=== PATIENT | female | born 1995 | race Caucasian/White ===

== ENCOUNTER 2016-05-07 09:42 | Outpatient (CLI) | payer MEDICAID ==
--- NOTE | 2016-05-07 10:01 | L&D Flow Sheet ---
LD Flowsheet Datetime Report Generated by CPN: 05/07/2016 10:00 Datetime: 05/07/2016 09:56 NBP Sys/Diya/Mean (mmHg): 110 (QS system process) : 75 (QS system process) : 86 (QS system process) Pulse: 77 (QS system process)
--- NOTE | 2016-05-07 10:24 | Non Stress Test Report ---
Non Stress Test Datetime Report Generated by CPN: 05/07/2016 10:24 DEMOGRAPHIC EGA NST: 40.2 INDICATION Indication for Study: Ordered by Provider Indication for Study (NST) Other: POST DATES VITAL SIGNS Temperature - NST: 98.2 Pulse - NST: 77 RESP - NST: 16 NBPSYS NST: 110 NBPDIA NST: 75 MONITORING Monitor Explained: Monitor Explained; Test Explained; Patient Verbalized Understanding Time on Monitor: 05/07/2016 09:56 Time off Monitor: 05/07/2016 10:14 NST Duration: 18 NST INTERVENTIONS NST Interventions: PO Hydration; Reposition Patient Physician Notified NST: Meryl CRESPO CNM Physician Notified NST: meryl crespo cnm (Annotations: Data stored by CPN on behalf of user) BABY A: [id number] BABY A Movement : Present Movement : Present Contraction Frequency : irreg FHR Baseline : 130 Accelerations : 15X15 Variability : Moderate 6-25bpm NST Review: Meets Criteria for Reactive NST NST Review and Verified By : Jennifer Camp RNC NST Results: Reactive NST REPORT Report Trigger: Send Report
--- NOTE | 2016-05-07 10:46 | L&D Flow Sheet ---
LD Flowsheet Datetime Report Generated by CPN: 05/07/2016 10:45 Datetime: 05/07/2016 09:56 NBP Sys/Diya/Mean (mmHg): 110 (QS system process) : 75 (QS system process) : 86 (QS system process) Pulse: 77 (QS system process)
--- NOTE | 2016-05-07 10:46 | L&D General Admission ---
General Admit Datetime Report Generated by CPN: 05/07/2016 10:45 INFORMATION Patient Age: 20 (05/01/2016 14:25:QS system process) EDC: 05/05/2016 00:00 (05/07/2016 09:20:Meryl Vergara, RN) Para: 1 (05/07/2016 09:57:Meryl Vergara RN) Baby, Number in Womb: 1 (05/07/2016 09:57:Meryl Vergara, RN) CARE Primary Operations Controller: [facility] (Annotations: Data stored by Leona on behalf of user) (05/07/2016 09:20:Meryl Vergara RN) ALLERGIES Medication Allergies: No Known Drug Allergies (05/07/2016); nickel (05/07/2016) (05/07/2016 10:09:QS system process) DEMOGRAPHICS Address: [address] [place] [id number] (05/01/2016 14:25:QS system process) Zipcode: [address] (05/01/2016 14:25:QS system process) Home (05/01/2016 14:25:QS system process) Work (05/01/2016 14:25:QS system process) N: [phone] (05/01/2016 14:25:QS system process) Next of Kin Name: ANKITA WATSON (05/01/2016 14:25:QS system process) Next of Kin (05/01/2016 14:25:QS system process) Next of Kin Relationship: SPO (05/01/2016 14:25:QS system process) Date of : 1995 (05/01/2016 14:25:QS system process) Marital Status: (05/01/2016 14:25:QS system process) Sex: Female (05/01/2016 14:25:QS system process) Race: (05/01/2016 14:25:QS system process) Ethnicity: Non- or (05/01/2016 14:25:QS system process) Catholic: None (05/01/2016 14:25:QS system process)
--- NOTE | 2016-05-07 10:46 | Antepartum Discharge Summary ---
Antepartum DC Datetime Report Generated by CPN: 05/07/2016 10:45 Diet: Regular (05/07/2016 09:57:Meryl Vergara RN) Activity: Normal Activity (05/07/2016 09:57:Meryl Vergara RN) Instructions Understood: Patient Verbalized Understanding; Support Person Verbalized Understanding (05/07/2016 09:57:Meryl Vergara RN) Referrals: None (05/07/2016 09:57:Meryl Vergara RN) Educational Materials- Other: KICK COUNTS _ LABOR SIGNS CARE NOTES GIVEN TO PT- QUESTIONS ANSWERED. (05/07/2016 09:57:Meryl Vergara RN) Discharged AMA: No (05/07/2016 09:57:Meryl Vergara RN) Discharge Date/Time: 05/07/2016 10:19 (05/07/2016 09:57:Meryl Vergara RN) Discharged To: Home (05/07/2016 09:57:Meryl Vergara RN) Discharge Provider Name: Meryl POLO CNM (05/07/2016 09:57:Meryl Vergara RN) Accompanied By: JIMY (05/07/2016 09:57:Meryl Vergara RN) Discharge Method: Ambulatory (05/07/2016 09:57:Meryl Vergara RN) Condition: Stable (05/07/2016 09:57:Meryl Vergara RN) Follow Up With: [facility] (05/07/2016 09:57:Meryl Vergara RN) Follow Up On: As Scheduled (05/07/2016 09:57:Meryl Vergara RN) Follow Up Phone Number: [facility] - (05/07/2016 09:57:Meryl Vergara RN)
--- NOTE | 2016-05-07 10:46 | L&D Discharge Summary ---
OB Discharge Summary Datetime Report Generated by CPN: 05/07/2016 10:45 DISCHARGE DIAGNOSIS Diagnosis/Symptoms: Post Dates Diagnoses/Symptoms Other: REACTIVE NST- POST DATES; NOT IN LABOR Number of Babies in Womb: 1 Parity: 1 DIET/ACTIVITY/RESTRICTIONS Diet: Regular Activity: Normal Activity TEACHING/INSTRUCTIONS/REFERRALS Instructions Understood: Patient Verbalized Understanding; Support Person Verbalized Understanding Referrals: None Educational Materials- Other: KICK COUNTS _ LABOR SIGNS CARE NOTES GIVEN TO PT- QUESTIONS ANSWERED. DISCHARGE INFORMATION Discharged AMA: No Discharge Date/Time: 05/07/2016 10:19 Discharged To: Home Discharge Provider Name: C POLO, CNM Accompanied By: FOB Discharge Method: Ambulatory Condition: Stable FOLLOW UP INFORMATION Follow Up With: [facility] Follow Up On: As Scheduled Follow Up Phone Number: [facility] -
== END 2016-05-07 10:19 | disposition home or self-care (01) ==
LOC: LC 09:42
PROVIDERS: ATTEND Obstetrics & Gynecology
PROC: 4A1HXCZ Monitoring of Products of Conception, Cardiac Rate, External Approach (ICD-10-PCS; principal; 2016-05-07)
DX: O48.0 Post-term pregnancy (principal); Z3A.40 40 weeks gestation of pregnancy
CPT/HCPCS: 59025

== ENCOUNTER 2016-05-09 00:20 | Inpatient (IN) | payer MEDICAID ==
[2016-05-09] MEDS ORDERED: LIDOCAINE 1% INJ-PF (10 MG/ML) 30 ML SDV ONE (00:39)
[2016-05-09] MEDS ORDERED: OXYTOCIN/NORMAL SALINE 20 UNIT/1,000 ML RTUINJ ONE (00:39)
[2016-05-09] MEDS ORDERED: MISOPROSTOL 0.2 MG TABLET ONE (00:39)
[2016-05-09] MEDS ORDERED: PENICILLIN G-K 5 MILLION UNIT VIAL ONE ×2 (00:39→03:52)
[2016-05-09] MEDS ORDERED: RINGERS SOLUTION,LACTATED 1,000 ML IV ONE (00:44)
[2016-05-09] MEDS ORDERED: RINGERS SOLUTION,LACTATED 1,000 ML IV PRN (00:44)
[2016-05-09] MEDS ORDERED: FENTANYL/BUPIVACAINE/NS/PF 200 MCG/100 ML RTUINJ EPI ONE (00:49)
[2016-05-09] MEDS ORDERED: BUPIVACAINE HCL 0.25 % INJ/PF (2.5 MG/1 ML) 30 ML VIAL ONE (00:49)
[2016-05-09] MEDS ORDERED: EPHEDRINE SULFATE INJ 50 MG/1 ML AMPULE ONE (00:49)
[2016-05-09] MEDS ORDERED: PENICILLIN G POTASSIUM 5,000,000 UNIT in DEXTROSE 5%-WATER 100 ML IV ONE (01:00)
[2016-05-09] MEDS ORDERED: BENZOIN/ALOE VERA/STORAX/TOLU TINCTURE 60 ML TP PRN (01:05)
[2016-05-09] MEDS ORDERED: DIPHENHYDRAMINE HCL 50 MG/ML VIAL IV PRN (01:05)
[2016-05-09] MEDS ORDERED: EPHEDRINE SULFATE INJ 50 MG/1 ML AMPULE IV PRN (01:05)
[2016-05-09] MEDS ORDERED: EPHEDRINE SULFATE INJ 50 MG/1 ML AMPULE IV ONE (01:05)
[2016-05-09] MEDS ORDERED: BUPIVACAINE HCL 0.25 % INJ/PF (2.5 MG/1 ML) 30 ML VIAL INFIL ONE (01:05)
[2016-05-09 01:10] LABS: ABSOLUTE EOSINOPHILS # (AUTO) 0.1 10^3/uL (0.0-0.6); ABSOLUTE LYMPHOCYTES (AUTO) 3.4 10^3/uL (0.5-4.7); ABSOLUTE MONOCYTES (AUTO) 0.6 10^3/uL (0.1-1.4); ABSOLUTE NEUT (AUTO) 5.4 10^3/uL (1.7-8.2); BASOPHILS % (AUTO) 0.3 % (0-2); EOSINOPHILS % (AUTO) 0.9 % (0-6); HEMATOCRIT 35.7 % (36.0-47.0); HEMOGLOBIN 12.2 g/dL (12.0-15.5); HGB HCT DIFFERENCE 0.9; LYMPHOCYTES % (AUTO) 35.9 % (13-45); MEAN CORPUSCULAR HEMOGLOBIN 29.6 pg (27.0-33.4); MEAN CORPUSCULAR HGB CONC 34.3 g/dL (32.0-36.0); MEAN CORPUSCULAR VOLUME 86 fl (80-97); RED BLOOD COUNT 4.14 10^6/uL (3.72-5.28); RED CELL DISTRIBUTION WIDTH 15.5 % (11.5-14.0); SEGMENTED NEUTROPHILS % (AUTO) 56.9 % (42-78); WHITE BLOOD COUNT 9.4 10^3/uL (4.0-10.5)
[2016-05-09 01:11] LABS: APPEARANCE,URINE SLIGHTLY-CLOUDY; BILIRUBIN,URINE NEGATIVE (NEGATIVE); GLUCOSE, URINE NEGATIVE (NEGATIVE); KETONES,URINE TRACE mg/dL (NEGATIVE); LEUKOCYTE ESTERASE,URINE MODERATE (NEGATIVE); NITRITE,URINE NEGATIVE (NEGATIVE); PROTEIN,URINE NEGATIVE (NEGATIVE); URINE SPECIFIC GRAVITY 1.015; UROBILINOGEN,URINE NEGATIVE mg/dL (<2.0)
[2016-05-09 01:51] LABS: URINE BARBITURATES SCREEN NEGATIVE; URINE METHADONE SCREEN NEGATIVE; URINE OPIATES LOW NEGATIVE
[2016-05-09 01:55] LABS: URINE PHENCYCLIDINE SCREEN NEGATIVE
[2016-05-09] MEDS: FENTANYL/BUPIVACAINE/NS/PF 100 ML EPI PRN ×2 (04:02→04:24)
[2016-05-09] MEDS ORDERED: PENICILLIN G POTASSIUM 2,500,000 UNIT in DEXTROSE 5%-WATER 50 ML IV SCH (05:00)
--- NOTE | 2016-05-09 05:16 | L&D Progress Notes ---
PROGRESS NOTES Datetime Report Generated by CPN: 05/09/2016 05:16 PROGRESS NOTE Procedures: Artificial ROM Plan: Continue Present Management Comment: Vertex is ROP. Repositioned. VAGINAL EXAM Dilatation: 9 Effacement: 100 Station: 0 MEMBRANES Membranes: Ruptured Amniotic Fluid Color: Clear FETUS A Monitoring: External US FHR Category: Category I SIGNATURE SIGNATURE: [id number] SIGNATURE: [id number] Signature: with User ID: [email or web address]
[2016-05-09] MEDS ORDERED: OXYTOCIN/NORMAL SALINE 1,000 ML IV PRN ×2 (05:52→06:12)
[2016-05-09] MEDS ORDERED: DIPH/PERTUSS(ACELL)/TETANUS VAC/PF 0.5 ML SYR (>=10YO) IM PRN (06:12)
[2016-05-09] MEDS ORDERED: BENZOCAINE/MENTHOL AEROSOL SPRAY 56 ML TOP PRN (06:12)
[2016-05-09] MEDS ORDERED: DIBUCAINE 1% OINTMENT 28 GM TP PRN (06:12)
[2016-05-09] MEDS ORDERED: ZOLPIDEM TARTRATE 5 MG TABLET PO PRN (06:12)
[2016-05-09] MEDS ORDERED: ACETAMINOPHEN WITH CODEINE #3 TABLET PO PRN ×2 (06:12)
[2016-05-09] MEDS ORDERED: MEASLES,MUMPS&RUBELLA VACC/PF 0.5 ML VIAL SUBCUT PRN (06:12)
--- NOTE | 2016-05-09 07:58 | Delivery Summary ---
Del Sum A-C Datetime Report Generated by CPN: 05/09/2016 07:58 ADMISSION DATA Chief Complaint: Uterine Contractions Admission Impression: Term, Intrauterine ; Active Labor Admit Provider Comments: admit, pt comfortable with epidural, gbs prophylaxis DELIVERY PERSONNEL Delivery Doctor:: Jaclyn Quinn MD Labor and Delivery Nurse:: Jen Marie RNtimekeeper supervisor Nurse:: Quyen Paulino RN Physician Obstetrician/MACHINIST AUTOMOTIVE: Milagros Kuhn, ST MATERNAL INFORMATION Delivery Anesthesia: Epidural Medications After Delivery: Pitocin Drip 20 Units/1000ml NSS Estimated Blood Loss (ml): 150 Maternal Complications: None Provider Comments: Pt progressed to complete and pushig. Hea delivered MARI. Shoulders and body delivered easily. COURT REPORTER/OP bulb suctioned. Cord clamped and cut. Placenta spont and intact. Male infant with apgars 9 and 9. Intact perineum. Mom and baby doing well. LABOR SUMMARY EDC: 05/05/2016 00:00 No. Babies in Womb: 1 Attempted: No Labor Anesthesia: Epidural LABOR INFORMATION Reason for Induction: Not Applicable Onset of Labor: 05/09/2016 00:34 Complete Dilatation: 05/09/2016 05:41 Oxytocin: N/A Group B Beta Strep: Positive Antibiotics # of Doses: 0415 Antibiotics Time of Last Dose: 2 Name of Antibiotic Given: PCN Steroids Given: None Reason Steroids Not Administered: Not Applicable MEMBRANES Membranes Rupture Method: Artificial Rupture of Membranes: 05/09/2016 05:02 Length of Rupture (hr): 0.97 Amniotic Fluid Color: Clear Amniotic Fluid Amount: Moderate Amniotic Fluid Odor: Normal STAGES OF LABOR Stage 1 hr: 5 Stage 1 min: 7 Stage 2 hr: 0 Stage 2 min: 19 Stage 3 hr: 0 Stage 3 min: 3 Total Time in Labor hr: 5 Total Time in Labor min: 29 VAGINAL DELIVERY Episiotomy: None Laceration Extension: N/A Laceration Type: None Laceration Repair: Not Applicable Sponge Count Correct: N/A Sharps Count Correct: N/A CSECTION DELIVERY Primary Indication: N/A Secondary Indication: N/A CSection Incidence: N/A Labor: N/A Elective: N/A CSection Incision: N/A BABY A INFORMATION Infant Delivery Date/Time: 05/09/2016 06:00 Method of Delivery: Vaginal Born in Route : No : N/A Forceps: N/A Vacuum Extraction: N/A Shoulder Dystocia : No PRESENTATION/POSITION BABY A Presentation: Cephalic Cephalic Presentation: Vertex Vertex Position: Right Occipital Anterior Breech Presentation: N/A PLACENTA INFORMATION BABY A Placenta Delivery Time : 05/09/2016 06:03 Placenta Method of Delivery: Spontaneous Placenta Status: Delivered SCORES BABY A Heart Rate 1 min: >100 bpm Resp Effort 1 min: Good Cry Reflex Irritability 1 min: Cough or Sneeze or Pulls Away Muscle Tone 1 min: Active Motion Color 1 min: Body [place], Extremities Blue Resuscitation Effort 1 min: Tactile Stimulation SCORE 1 MIN: 9 Heart Rate 5 min: >100 bpm Resp Effort 5 min: Good Cry Reflex Irritability 5 min: Cough or Sneeze or Pulls Away Muscle Tone 5 min: Active Motion Color 5 min: Body [place], Extremities Blue Resuscitation Effort 5 min: Tactile Stimulation SCORE 5 MIN: 9 INFANT INFORMATION BABY A Gestational Age at Delivery: 40.4 Gestational Status: Full Term- 39- 40.6 Weeks Infant Outcome : Liveborn Condition : Stable Sex: Male IDENTIFICATION BABY A Infant Verification Date/Time: 05/09/2016 06:15 ID Band Number: [id number] Mother's Name Verified: Yes RN Verifying Infant: S. Lattibeaudeir, RN Additional Verifying Personnel: C. Fore, RN WEIGHT/LENGTH BABY A Infant Birthweight (gm): 4165 Weight (lb): 9 Weight (oz): 3 Infant Length (in): 21.00 Infant Length (cm): 53.34 CORD INFORMATION BABY A No. Cord Vessels: 3 Nuchal Cord : N/A Cord Blood Taken: Yes-For Eval (Mom's Blood Type - or O+) Infant Suction: None ASSESSMENT BABY A Infant Complications: Decreased Variability Physical Findings at Delivery: Within Normal Limits Respirations: Appears Normal Skin to Skin: Yes Skin to Skin Time (min): 60 Copy Manager/ALS Called : No Care By: Marisol Paulino RN Transferred To: Remains with Mother BABY B INFORMATION : N/A SIGNATURES Signature: with User ID: [email or web address]
--- NOTE | 2016-05-09 08:02 | L&D Flow Sheet ---
LD Flowsheet Datetime Report Generated by CPN: 05/09/2016 08:00 Datetime: 05/09/2016 07:35 Stage of : Recovery (Tamar Bhatia, ROSANA) Datetime: 05/09/2016 07:30 Stage of : Recovery (Tamar Bhatia RN) Pain Scale: 1 (Tamar Bhatia RN) Pain Presence: Intermittent (Tamar Bhatia RN) Pain Type: Cramping (Tamar Marhefka, RN) Pain Location: Abdomen (Tamar Adilenefka, RN) Pain Goal: 0 (Tamar Adilenefka, RN) Pain Relief Measures: Comfort Measures (Tamar Headfgwyn, RN) Datetime: 05/09/2016 07:26 NBP Sys/Diya/Mean (mmHg): 120 (QS system process) : 66 (QS system process) : 87 (QS system process) Pulse: 52 (QS system process) Datetime: 05/09/2016 07:00 Pain Scale: 0 ([facility]) Datetime: 05/09/2016 06:56 NBP Sys/Diya/Mean (mmHg): 124 (QS system process) : 66 (QS system process) : 92 (QS system process) Pulse: 61 (QS system process) Datetime: 05/09/2016 06:13 NBP Sys/Diya/Mean (mmHg): 117 (QS system process) : 66 (QS system process) : 83 (QS system process) Pulse: 78 (QS system process) Respirations: 14 (Jen Ledgerwood, RN) Datetime: 05/09/2016 06:10 Stage of : Recovery (Jen Oliveira, RN) Temperature (F): 98.1 (Jen Ledgerwood, RN) Temperature (C): 36.7 (QS system process) Temperature Route: Oral (Jen Adeolagerwood, RN) Pain Scale: 0 (Jenjosé miguel Mirgerwood, RN) Pain Presence: None/Denies (Jen Ledgerwood, RN) Datetime: 05/09/2016 06:00 Monitor Mode: External; Palpation (Jen Ledgerwood, RN) Frequency (min): 2-5 (Jen Ledgerwood, RN) Quality: Strong (Jen Ledgerwood, RN) Duration (sec): 50-70 (Jen Ledgerwood, RN) Duration Criteria: Less than Two 120 Second Contractions (Jen Ledgerwood, RN) Pattern: Normal: <= 5 Contractions in 10 Minutes (Jen Ledgerwood, RN) Resting Tone (Palpate): Relaxed (Jen Ledgerwood, RN) Monitor Mode: External US (Jen Ledgerwood, RN) FHR Baseline Rate : 130 (Jen Ledgerwood, RN) FHR Baseline Changes: No Baseline Change (Jen Ledgerwood, RN) Variability: Moderate 6-25 bpm (Jen Ledgerwood, RN) Accelerations: None (Jen Ledgerwood, RN) Decelerations: Early (Jen Ledgerwood, RN) Stage 2 Comments: of vital male (Jen Ledgerwood, RN) Datetime: 05/09/2016 05:58 NBP Sys/Diya/Mean (mmHg): 129 (QS system process) : 66 (QS system process) : 91 (QS system process) Pulse: 63 (QS system process) LaborFlag: Antepartum (QS system process) Datetime: 05/09/2016 05:56 Pushing Position: Pushing with Contractions (Jen Oliveira RN) Pushing Progress: Caput Noted; Pushing Effectively with Contractions (Jen Oliveira RN) Stage 2 Comments: RN and provider at bedside continuously assessing while pt. pushimg with contractions. (Jen Oliveira RN) Datetime: 05/09/2016 05:54 Pitocin (milliunit): Pitocin Started (milliunits) @ 2 (Jen Oliveira RN) Datetime: 05/09/2016 05:53 Pushing Position: Pushing with Contractions (Jen Ledgerwood, RN) Pushing Progress: Perineal Bulging; Pushing Effectively with Contractions (Jen Ledgerwood, RN) Datetime: 05/09/2016 05:45 Monitor Mode: External; Palpation (Jen Ledgerwood, RN) Frequency (min): 2.5-4 (Jen Ledgerwood, RN) Quality: Moderate to Strong (Jen Ledgerwood, RN) Duration (sec): 60-120 (Jen Ledgerwood, RN) Duration Criteria: Less than Two 120 Second Contractions (Jen Ledgerwood, RN) Pattern: Normal: <= 5 Contractions in 10 Minutes (Jen Ledgerwood, RN) Resting Tone (Palpate): Relaxed (Jen Ledgerwood, RN) Monitor Mode: External US (Jen Ledgerwood, RN) FHR Baseline Rate : 135 (Jen Ledgerwood, RN) FHR Baseline Changes: No Baseline Change (Jen Ledgerwood, RN) Variability: Moderate 6-25 bpm (Jen Ledgerwood, RN) Accelerations: None (Jen Ledgerwood, RN) Decelerations: Early; Late (Jen Ledgerwood, RN) Datetime: 05/09/2016 05:43 NBP Sys/Diya/Mean (mmHg): 129 (QS system process) : 70 (QS system process) : 93 (QS system process) Pulse: 74 (QS system process) LaborFlag: Antepartum (QS system process) Datetime: 05/09/2016 05:41 Dilatation (cm): 10.0 (Madhavi Red RN) Exam by: Dr. Quinn (Madhavi Red RN) Pushing: Coached on Pushing (Jen Oliveira RN) Pushing Position: Pushing with Contractions (Jen Oliveira RN) Pushing Progress: Pushing Effectively with Contractions (Jen Oliveira RN) Datetime: 05/09/2016 05:36 Communication: RN at Bedside; Provider at Bedside (Jen Ledgerwood, RN) Communication Comments: Dr Quinn at bedside (Jen Ledgerwood, RN) Datetime: 05/09/2016 05:30 Monitor Mode: External; Palpation (Jen Ledgerwood, RN) Frequency (min): 2-4.5 (Jen Ledgerwood, RN) Quality: Moderate to Strong (Jen Ledgerwood, RN) Duration (sec): 60-70 (Jen Ledgerwood, RN) Duration Criteria: Less than Two 120 Second Contractions (Jen Ledgerwood, RN) Pattern: Normal: <= 5 Contractions in 10 Minutes (Jen Ledgerwood, RN) Resting Tone (Palpate): Relaxed (Jen Ledgerwood, RN) Monitor Mode: External US (Jen Ledgerwood, RN) FHR Baseline Rate : 135 (Jen Ledgerwood, RN) FHR Baseline Changes: No Baseline Change (Jen Ledgerwood, RN) Variability: Minimal - Undetectable to <=5 bpm (Jen Ledgerwood, RN) Accelerations: None (Jen Ledgerwood, RN) Decelerations: Early (Jen Ledgerwood, RN) Datetime: 05/09/2016 05:28 NBP Sys/Diya/Mean (mmHg): 122 (QS system process) : 71 (QS system process) : 91 (QS system process) Pulse: 67 (QS system process) LaborFlag: Antepartum (QS system process) Datetime: 05/09/2016 05:15 Monitor Mode: External; Palpation (Jen Ledgerwood, RN) Frequency (min): UTD (Jen Ledgerwood, RN) Resting Tone (Palpate): Relaxed (Jen Ledgerwood, RN) Monitor Mode: External US (Jen Ledgerwood, RN) FHR Baseline Rate : 130 (Jen Ledgerwood, RN) FHR Baseline Changes: No Baseline Change (Jen Ledgerwood, RN) Variability: Moderate 6-25 bpm (Jen Ledgerwood, RN) Accelerations: None (Jen Ledgerwood, RN) Decelerations: Early (Jen Ledgerwood, RN) Datetime: 05/09/2016 05:13 NBP Sys/Diya/Mean (mmHg): 117 (QS system process) : 65 (QS system process) : 85 (QS system process) Pulse: 80 (QS system process) LaborFlag: Antepartum (QS system process) Datetime: 05/09/2016 05:03 Patient Position/Activity: Left Extreme; Peanut Ball (Jen Oliveira RN) Datetime: 05/09/2016 05:02 Dilatation (cm): 8.5 (Jen Oliveira RN) Effacement (%): 100 (Jen Oliveira RN) Station: 0 (Jen Oliveira RN) Exam by: Dr Quinn (Jen Oliveira RN) Membrane Status: Ruptured (Jen Oliveira RN) Membranes Ruptured Date/Time: 05/09/2016 05:02 (Madhavi Red RN) Membranes Rupture Method: Artificial (Jen Oliveira RN) Amniotic Fluid Color: Clear (Jen Oliveira RN) Amniotic Fluid Amount: Moderate (Jen Ledgerwood, RN) Amniotic Fluid Odor: Normal (Jen Mirgerhoma, RN) Datetime: 05/09/2016 05:01 Communication: Provider at Bedside (Jen Oliveira RN) Communication Comments: Dr Quinn at bedside. (Jen Oliveira, RN) Datetime: 05/09/2016 05:00 Monitor Mode: External; Palpation (Jen Oliveira, RN) Frequency (min): 2.5-4.5 (Jen Oliveira, RN) Quality: Moderate to Strong (Jen Oliveira, RN) Duration (sec): 70-110 (Jen Oliveira, RN) Duration Criteria: Less than Two 120 Second Contractions (Jen Oliveira, RN) Pattern: Normal: <= 5 Contractions in 10 Minutes (Jen Oliveira, RN) Resting Tone (Palpate): Relaxed (Jen Oliveira, RN) Monitor Mode: External US (Jen Oliveira, RN) FHR Baseline Rate : 135 (Jen Oliveira, RN) FHR Baseline Changes: No Baseline Change (Jen Ledgerwood, RN) Variability: Moderate 6-25 bpm (Jen Ledgerwood, RN) Accelerations: None (Jen Ledgerwood, RN) Decelerations: None (Jen Ledgerwood, RN) Datetime: 05/09/2016 04:59 NBP Sys/Diya/Mean (mmHg): 119 (QS system process) : 65 (QS system process) : 86 (QS system process) Pulse: 64 (QS system process) LaborFlag: Antepartum (QS system process) Datetime: 05/09/2016 04:44 NBP Sys/Diya/Mean (mmHg): 124 (QS system process) : 67 (QS system process) : 90 (QS system process) Pulse: 64 (QS system process) LaborFlag: Antepartum (QS system process) Datetime: 05/09/2016 04:30 Monitor Mode: External; Palpation (Jen Ledgerwood, RN) Frequency (min): 1.5-4.5 (Jen Ledgerwood, RN) Quality: Moderate to Strong (Jen Ledgerwood, RN) Duration (sec): 70-90 (Jen Ledgerwood, RN) Duration Criteria: Less than Two 120 Second Contractions (Jen Ledgerwood, RN) Pattern: Normal: <= 5 Contractions in 10 Minutes (Jen Ledgerwood, RN) Resting Tone (Palpate): Relaxed (Jen Ledgerwood, RN) Monitor Mode: External US (Jen Ledgerwood, RN) FHR Baseline Rate : 135 (Jen Ledgerwood, RN) FHR Baseline Changes: No Baseline Change (Jen Ledgerwood, RN) Variability: Minimal - Undetectable to <=5 bpm (Jen Ledgerwood, RN) Accelerations: None (Jen Ledgerwood, RN) Decelerations: None (Jen Ledgerwood, RN) Datetime: 05/09/2016 04:28 NBP Sys/Diya/Mean (mmHg): 118 (QS system process) : 66 (QS system process) : 87 (QS system process) Pulse: 62 (QS system process) LaborFlag: Antepartum (QS system process) Datetime: 05/09/2016 04:15 Antibiotics: Penicillin IV (Units) @ [id number] ([facility], ) Datetime: 05/09/2016 04:14 NBP Sys/Diya/Mean (mmHg): 120 (QS system process) : 67 (QS system process) : 88 (QS system process) Pulse: 60 (QS system process) Respirations: 14 ([facility], ) LaborFlag: Antepartum (QS system process) Datetime: 05/09/2016 04:00 Monitor Mode: External; Palpation ([facility], ) Frequency (min): 1.5-3.5 (Jen Ledgerwood, RN) Quality: Moderate to Strong (Jen Ledgerwood, RN) Duration (sec): 50-90 (Jen Ledgerwood, RN) Duration Criteria: Less than Two 120 Second Contractions (Jen Ledgerwood, RN) Pattern: Normal: <= 5 Contractions in 10 Minutes (Jen Ledgerwood, RN) Resting Tone (Palpate): Relaxed (Jen Ledgerwood, RN) Monitor Mode: External US (Jen Ledgerwood, RN) FHR Baseline Rate : 135 (Jen Ledgerwood, RN) FHR Baseline Changes: No Baseline Change (Jen Ledgerwood, RN) Variability: Minimal - Undetectable to <=5 bpm (Jen Ledgerwood, RN) Accelerations: None (Jen Ledgerwood, RN) Decelerations: None (Jen Ledgerwood, RN) Datetime: 05/09/2016 03:58 NBP Sys/Diya/Mean (mmHg): 115 (QS system process) : 64 (QS system process) : 84 (QS system process) Pulse: 67 (QS system process) LaborFlag: Antepartum (QS system process) Datetime: 05/09/2016 03:43 NBP Sys/Diya/Mean (mmHg): 111 (QS system process) : 61 (QS system process) : 79 (QS system process) Pulse: 76 (QS system process) LaborFlag: Antepartum (QS system process) Datetime: 05/09/2016 03:30 Monitor Mode: External; Palpation (Jen Ledgerwood, RN) Frequency (min): 1.5-3.5 (Jen Ledgerwood, RN) Quality: Moderate to Strong (Jen Ledgerwood, RN) Duration (sec): 60-80 (Jen Ledgerwood, RN) Duration Criteria: Less than Two 120 Second Contractions (Jen Ledgerwood, RN) Pattern: Normal: <= 5 Contractions in 10 Minutes (Jen Ledgerwood, RN) Resting Tone (Palpate): Relaxed (Jen Ledgerwood, RN) Monitor Mode: External US (Jen Ledgerwood, RN) FHR Baseline Rate : 135 (Jen Ledgerwood, RN) FHR Baseline Changes: No Baseline Change (Jen Ledgerwood, RN) Variability: Moderate 6-25 bpm (Jen Ledgerwood, RN) Accelerations: None (Jen Ledgerwood, RN) Decelerations: None (Jen Ledgerwood, RN) Datetime: 05/09/2016 03:28 NBP Sys/Diya/Mean (mmHg): 113 (QS system process) : 62 (QS system process) : 80 (QS system process) Pulse: 75 (QS system process) LaborFlag: Antepartum (QS system process) Datetime: 05/09/2016 03:13 NBP Sys/Diya/Mean (mmHg): 111 (QS system process) : 64 (QS system process) : 80 (QS system process) Pulse: 61 (QS system process) LaborFlag: Antepartum (QS system process) Datetime: 05/09/2016 03:09 Patient Position/Activity: Right Tilt (Jen Ledgerwood, RN) Datetime: 05/09/2016 03:00 Monitor Mode: External; Palpation (Jen Ledgerwood, RN) Frequency (min): 2.5-4 (Jen Ledgerwood, RN) Quality: Moderate to Strong (Jen Ledgerwood, RN) Duration (sec): 60-90 (Jen Ledgerwood, RN) Duration Criteria: Less than Two 120 Second Contractions (Jen Ledgerwood, RN) Pattern: Normal: <= 5 Contractions in 10 Minutes (Jen Ledgerwood, RN) Resting Tone (Palpate): Relaxed (Jen Ledgerwood, RN) Monitor Mode: External US (Jen Ledgerwood, RN) FHR Baseline Rate : 140 (Jen Ledgerwood, RN) FHR Baseline Changes: No Baseline Change (Jen Ledgerwood, RN) Variability: Minimal - Undetectable to <=5 bpm (Jen Ledgerwood, RN) Accelerations: None (Jen Ledgerwood, RN) Decelerations: None (Jen Ledgerwood, RN) Datetime: 05/09/2016 02:49 I/O Interventions: Popsicle (Jen Oliveira, RN) Patient Care Comments: popsicle provided to the pt. (Jen Adeolagerhoma, RN) Datetime: 05/09/2016 02:43 NBP Sys/Diya/Mean (mmHg): 104 (QS system process) : 57 (QS system process) : 77 (QS system process) Pulse: 59 (QS system process) Respirations: 15 (Jen Oliveira, RN) LaborFlag: Antepartum (QS system process) Datetime: 05/09/2016 02:30 Monitor Mode: External; Palpation (Jen Oliveira, RN) Frequency (min): 2.5-4.5 (Jen Ledgerwood, RN) Quality: Moderate to Strong (Jen Ledgerwood, RN) Duration (sec): 70-90 (Jen Ledgerwood, RN) Duration Criteria: Less than Two 120 Second Contractions (Jen Ledgerwood, RN) Pattern: Normal: <= 5 Contractions in 10 Minutes (Jen Ledgerwood, RN) Resting Tone (Palpate): Relaxed (Jen Mirgerhoma, RN) Monitor Mode: External US (Jen Oliveira, RN) FHR Baseline Rate : 145 (Jen Oliveira, RN) FHR Baseline Changes: No Baseline Change (Jen Ledgerwood, RN) Variability: Minimal - Undetectable to <=5 bpm (Jen Ledgerwood, RN) Accelerations: None (Jen Ledgerwood, RN) Decelerations: None (Jen Adeolagerwood, RN) Datetime: 05/09/2016 02:20 Actions for Decelerations: Provider Reviewed Strip (Jen Ramirezwood, RN) Datetime: 05/09/2016 02:12 NBP Sys/Diya/Mean (mmHg): 95 (QS system process) : 54 (QS system process) : 69 (QS system process) Pulse: 67 (QS system process) LaborFlag: Antepartum (QS system process) Datetime: 05/09/2016 02:07 NBP Sys/Diya/Mean (mmHg): 106 (QS system process) : 52 (QS system process) : 75 (QS system process) Pulse: 78 (QS system process) Communication: Provider at Bedside (Jen Oliveira RN) Communication Comments: Dr Quinn at bedside. (Jen Oliveira RN) LaborFlag: Antepartum (QS system process) Datetime: 05/09/2016 02:06 NBP Sys/Diya/Mean (mmHg): 124 (QS system process) : 58 (QS system process) : 78 (QS system process) Pulse: 206 (QS system process) LaborFlag: Antepartum (QS system process) Datetime: 05/09/2016 02:02 NBP Sys/Diya/Mean (mmHg): 82 (QS system process) : 48 (QS system process) : 58 (QS system process) Pulse: 73 (QS system process) LaborFlag: Antepartum (QS system process) Datetime: 05/09/2016 02:01 NBP Sys/Diya/Mean (mmHg): 82 (QS system process) : 45 (QS system process) : 58 (QS system process) Pulse: 74 (QS system process) LaborFlag: Antepartum (QS system process) Datetime: 05/09/2016 02:00 Monitor Mode: External; Palpation (Jen Oliveira, RN) Frequency (min): 1.5-2.5 (Jen Oliveira, RN) Quality: Moderate to Strong (Jen Oliveira, RN) Duration Criteria: Less than Two 120 Second Contractions (Jen Oliveira, RN) Pattern: Normal: <= 5 Contractions in 10 Minutes (Jen Oliveira, RN) Resting Tone (Palpate): Relaxed (Jen Oliveira, RN) Monitor Mode: External US (Jen Oliveira, RN) FHR Baseline Rate : 120 (Jen Oliveira, RN) FHR Baseline Changes: No Baseline Change (Jen Oliveira, RN) Variability: Moderate 6-25 bpm (Jen Oliveira, RN) Accelerations: 15X15 (Jen Mirgerhoma, RN) Decelerations: None (Jen Mirgerhoma, RN) Datetime: 05/09/2016 01:51 NBP Sys/Diya/Mean (mmHg): 104 (QS system process) : 52 (QS system process) : 71 (QS system process) Pulse: 93 (QS system process) LaborFlag: Antepartum (QS system process) Datetime: 05/09/2016 01:44 NBP Sys/Diya/Mean (mmHg): 104 (QS system process) : 53 (QS system process) : 71 (QS system process) Pulse: 83 (QS system process) Dilatation (cm): 7.0 (Jen Oliveira RN) Effacement (%): 90 (Jen Oliveira RN) Station: 0 (Jen Oliveira RN) Exam by: Emelia Oliveira RN (Jen Oliveira RN) Membrane Status: Bulging (Jen Oliveira RN) LaborFlag: Antepartum (QS system process) Datetime: 05/09/2016 01:43 NBP Sys/Diya/Mean (mmHg): 101 (QS system process) : 57 (QS system process) : 73 (QS system process) Pulse: 77 (QS system process) I/O Interventions: Moncada Cath Inserted (Jen Oliveira RN) Patient Care Comments: 14 F by K Fore RN (Jen Oliveira RN) LaborFlag: Antepartum (QS system process) Datetime: 05/09/2016 01:42 NBP Sys/Diya/Mean (mmHg): 113 (QS system process) : 62 (QS system process) : 82 (QS system process) Pulse: 75 (QS system process) LaborFlag: Antepartum (QS system process) Datetime: 05/09/2016 01:41 NBP Sys/Diya/Mean (mmHg): 107 (QS system process) : 57 (QS system process) : 76 (QS system process) Pulse: 71 (QS system process) LaborFlag: Antepartum (QS system process) Datetime: 05/09/2016 01:40 NBP Sys/Diya/Mean (mmHg): 112 (QS system process) : 64 (QS system process) : 80 (QS system process) Pulse: 70 (QS system process) LaborFlag: Antepartum (QS system process) Datetime: 05/09/2016 01:39 NBP Sys/Diya/Mean (mmHg): 117 (QS system process) : 55 (QS system process) : 80 (QS system process) Pulse: 76 (QS system process) LaborFlag: Antepartum (QS system process) Datetime: 05/09/2016 01:38 NBP Sys/Diya/Mean (mmHg): 124 (QS system process) : 60 (QS system process) : 86 (QS system process) Pulse: 76 (QS system process) LaborFlag: Antepartum (QS system process) Datetime: 05/09/2016 01:35 NBP Sys/Diya/Mean (mmHg): 113 (QS system process) : 63 (QS system process) : 83 (QS system process) Pulse: 77 (QS system process) LaborFlag: Antepartum (QS system process) Datetime: 05/09/2016 01:34 NBP Sys/Diya/Mean (mmHg): 112 (QS system process) : 62 (QS system process) : 80 (QS system process) Pulse: 76 (QS system process) LaborFlag: Antepartum (QS system process) Datetime: 05/09/2016 01:33 Pulse: 77 (QS system process) SpO2 (%): 98 (QS system process) LaborFlag: Antepartum (QS system process) Datetime: 05/09/2016 01:32 NBP Sys/Diya/Mean (mmHg): 133 (QS system process) : 55 (QS system process) : 86 (QS system process) Pulse: 86 (QS system process) LaborFlag: Antepartum (QS system process) Datetime: 05/09/2016 01:31 NBP Sys/Diya/Mean (mmHg): 129 (QS system process) : 61 (QS system process) : 88 (QS system process) Pulse: 78 (QS system process) LaborFlag: Antepartum (QS system process) Datetime: 05/09/2016 01:30 NBP Sys/Diya/Mean (mmHg): 136 (QS system process) : 63 (QS system process) : 91 (QS system process) Pulse: 88 (QS system process) Monitor Mode: External; Palpation (Jen Oliveira, RN) Frequency (min): 2-2.5 (Jen Oliveira, RN) Quality: Moderate to Strong (Jen Oliveira, RN) Duration (sec): 80-90 (Jen Ledgerwood, RN) Duration Criteria: Less than Two 120 Second Contractions (Jen Adeolagerhoma, RN) Pattern: Normal: <= 5 Contractions in 10 Minutes (Jen Ledgerwood, RN) Resting Tone (Palpate): Relaxed (Jenjosé miguel Mirgerhoma, RN) Monitor Mode: External US (Jen Oliveira, RN) FHR Baseline Rate : 120 (Jen Adeolagerhoma, RN) FHR Baseline Changes: No Baseline Change (Jen Adeolagerwood, RN) Variability: Moderate 6-25 bpm (Jen Ledgerwood, RN) Accelerations: 15X15 (Jen Adeolagerwood, RN) Decelerations: None (Jen Ashleywood, RN) LaborFlag: Antepartum (QS system process) Datetime: 05/09/2016 01:29 NBP Sys/Diya/Mean (mmHg): 122 (QS system process) : 67 (QS system process) : 92 (QS system process) Pulse: 86 (QS system process) LaborFlag: Antepartum (QS system process) Datetime: 05/09/2016 01:28 Pulse: 79 (QS system process) SpO2 (%): 98 (QS system process) LaborFlag: Antepartum (QS system process) Datetime: 05/09/2016 01:27 Anesthesia Plans: Epidural (Jen Ledgerwood, RN) Epidural Procedure: Test Dose (Jen Oliveira, RN) Datetime: 05/09/2016 01:23 Pulse: 93 (QS system process) SpO2 (%): 99 (QS system process) LaborFlag: Antepartum (QS system process) Datetime: 05/09/2016 01:21 Pulse: 107 (QS system process) SpO2 (%): 91 (QS system process) LaborFlag: Antepartum (QS system process) Datetime: 05/09/2016 01:19 NBP Sys/Diya/Mean (mmHg): 129 (QS system process) : 73 (QS system process) : 89 (QS system process) Pulse: 86 (QS system process) LaborFlag: Antepartum (QS system process) Datetime: 05/09/2016 01:18 Pulse: 92 (QS system process) SpO2 (%): 97 (QS system process) Communication: Provider at Bedside (Jen Oliveira RN) Communication Comments: Dr Calzada at bedside (Jen Oliveira RN) LaborFlag: Antepartum (QS system process) Datetime: 05/09/2016 01:13 Pulse: 88 (QS system process) SpO2 (%): 96 (QS system process) Procedure Verify: Correct Patient Identity; Correct Side and Site are Marked; Accurate Procedure Consent Form; Correct Patient Position (Jen Oliveira RN) Epidural Positioning: Sitting (Jen Oliveira RN) LaborFlag: Antepartum (QS system process) Datetime: 05/09/2016 01:10 NBP Sys/Diya/Mean (mmHg): 152 (QS system process) : 105 (QS system process) : 122 (QS system process) Pulse: 95 (QS system process) Procedure Verify: Correct Patient Identity; Correct Side and Site are Marked; Accurate Procedure Consent Form; Correct Patient Position (Jen Ledgerwood, RN) LaborFlag: Antepartum (QS system process) Datetime: 05/09/2016 01:05 Procedure Verify: Correct Patient Identity; Correct Side and Site are Marked; Accurate Procedure Consent Form; Correct Patient Position (Jen Ledgerwood, RN) Datetime: 05/09/2016 01:00 Monitor Mode: External; Palpation (Jen Ledgerwood, RN) Frequency (min): 1.5-3 (Jen Ledgerwood, RN) Quality: Moderate to Strong (Jen Ledgerwood, RN) Duration (sec): 90-120 (Jen Ledgerwood, RN) Duration Criteria: Less than Two 120 Second Contractions (Jen Ledgerwood, RN) Pattern: Normal: <= 5 Contractions in 10 Minutes (Jen Ledgerwood, RN) Resting Tone (Palpate): Relaxed (Jen Ledgerwood, RN) Monitor Mode: External US (Jen Ledgerwood, RN) FHR Baseline Rate : 120 (Jen Ledgerwood, RN) FHR Baseline Changes: No Baseline Change (Jen Ledgerwood, RN) Variability: Moderate 6-25 bpm (Jen Ledgerwood, RN) Accelerations: 10X10 (Jen Ledgerwood, RN) Decelerations: None (Jen Ledgerwood, RN) Datetime: 05/09/2016 00:45 Antibiotics: Start Antibiotics; Penicillin IV (Units) @ 5 million units (Jen Oliveira, RN) IV/Blood Work: IV Started; IV Bolus Started (Jen Oliveira, RN) Patient Care Comments: 18 in R wrist on first attempt by Meryl Alford RN (Jen Oliveira, RN) Datetime: 05/09/2016 00:39 Stage of : Antepartum (Madhavi Red RN) Pain Scale: 5 (Jen Oliveira RN) Pain Presence: Intermittent (Jen Oliveira RN) Pain Type: Contraction (Jen Oliveira RN) Pain Location: Abdomen; Back (Jen Oliveira RN) Pain Relief Measures: Comfort Measures (Jen Oliveira RN) Pain Coping: Breathing Through Contractions (Jen Oliveira RN) Level of Consciousness: Fully Conscious (Jen Oliveira RN) DTR's/Clonus: DTRs 2+; No Clonus (Jen Oliveira RN) Headache: Denies (Jen Oliveira RN) Breath Sounds, Left: Clear and Equal (Jen Oliveira RN) Breath Sounds, Right: Clear and Equal (Jen Oliveira RN) Nausea/Vomiting: Denies (Jen Oliveira RN) RUQ Epigastric Pain: Denies (Jen Oliveira RN) Instructional Method: Demo; Verbal; Patient Instructed (Jen Oliveira RN) Plan of Care: Plan of Care Discussed; Vaginal Delivery (Jen Oliveira RN) Unit Routine: [place] to Room; Call Christiansen; Bed; Visiting Policy; Handwashing; Monitoring; Safety/Fall Risk Prevention; Medications (Jen Oliveira, ROSANA) Pain Management: Epidural (Jen Oliveira, ROSANA) LaborFlag: Antepartum (QS system process) Datetime: 05/09/2016 00:38 NBP Sys/Diya/Mean (mmHg): 114 (QS system process) : 80 (QS system process) : 93 (QS system process) Pulse: 80 (QS system process) LaborFlag: Antepartum (QS system process) Datetime: 05/09/2016 00:37 Communication Comments: Called Dr. Quinn and informed her of patients complaint of ctx, SVE and bulging membranes. Informed that pt is GBS positive. Received orders for admission, GBS protocol, IV therapy and may have epidural if she wants one. (Madhavi Red RN) Datetime: 05/09/2016 00:34 Stage of : Antepartum (Madhavi Red RN) Dilatation (cm): 6.0 (Jen Oliveira RN) Effacement (%): 90 (Jen Oliveira RN) Station: -1 (Jen Oliveira, ROSANA) Exam by: Emelia oliveira RN (Jen Oliveira, ROSANA) Membrane Status: Bulging (Jen Oliveiar RN)
--- NOTE | 2016-05-09 08:53 | Admission Physical ---
Datetime Report Generated by CPN: 05/09/2016 08:52 CURRENT ADMISSION Hx Assessment: The History has been Reviewed and is Current Chief Complaint: Uterine Contractions Admit Plan: Initiate Labor Protocol ALLERGIES Medication Allergies: No Medication Allergies: No Known Drug Allergies (05/07/2016); nickel (05/07/2016) Latex: Latex Allergies OBSTETRICAL HISTORY EDC: 05/05/2016 00:00 : 2 Para: 1 Term: 1 : 0 SAB: 0 IAB: 0 Ectopic: 0 Livin Cesareans: 0 VBACs: 0 Multiple Births: 0 Gestational Diabetes: No Rh Sensitization: No Incompetent Cervix: No VELASQUEZ: No Infertility: No ART Treatment: No Uterine Anomaly: No IUGR: No Hx Previous C/S: No Macrosomia: No Hx Loss/Stillborn: No PIH: No Hx : No Placenta Previa/Abruption: No Depression/PP Depression: No PTL/PROM: No Post Hemorrhage: No Current Procedures: Ultrasound; NST Obstetrical History Comments: -07/2013 @ 41wks Male 8lbs 2oz G2-Current SEE RECORDS Alcohol: No Marijuana : No Cocaine: No Other Illicit Drugs: No Cigarettes: Former Smoker. [id number] MEDICAL HISTORY Diabetes: No Blood Transfusion: No Pulmonary Disease (Asthma, TB): No Breast Disease: No Hypertension: No Deadener Surgery: No Heart Disease: No Hosp/Surgery: No Autoimmune Disorder: No Anesthetic Complications: No Kidney Disease: No Abnormal Pap Smear: No Neuro/Epilepsy: No Psychiatric Disorders: No Other Medical Diseases: No Hepatitis/Liver Disease: No Significant Family History: No Varicosities/Phlebitis: No Trauma/Violence : No Thyroid Dysfunction: No INFECTIOUS HISTORY Gonorrhea: No Genital Herpes: No Chlamydia: No Tuberculosis: No Syphilis: No Hepatitis: No HIV/AIDS Exposure: No Rash or Viral Illness: No HPV: No PHYSICAL EXAM General: Normal HEENT: Normal Neurologic: Normal Thyroid: Normal Heart: Normal Lungs: Normal Breast: Normal Back: Normal Abdomen: Normal Genitourinary Exam: Normal Extremities: Normal DTRs: Normal Pelvic Type: Adequate Physical Exam Comments: efw 9 pounds by alana pelvis proven to 8 pounds 2 oz VAGINAL EXAM Dilatation: 9 Effacement: 100 Station: 0 MEMBRANES Membranes: Ruptured Amniotic Fluid Color: Clear FETUS A EGA: 40.4 Monitoring: External US FHR Comments: decreased variablity since epidural but 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
[2016-05-09] MEDS: DOCUSATE SODIUM 100 MG CAPSULE PO SCH ×2 (10:07→18:17)
[2016-05-09] MEDS: SENNOSIDES/DOCUSATE 8.6-50 MG 1 EACH TABLET PO SCH (10:07)
[2016-05-09] MEDS: PRENATAL VITAMIN W-O CA NO5/FE FUMARATE/FA CAPSULE PO SCH (10:07)
[2016-05-09] MEDS: FERROUS SULFATE 325 MG TABLET PO SCH ×2 (10:07→18:17)
[2016-05-09] MEDS: IBUPROFEN 800 MG TABLET PO SCH ×2 (13:09→22:06)
--- NOTE | 2016-05-09 19:02 | L&D Flow Sheet ---
LD Flowsheet Datetime Report Generated by CPN: 05/09/2016 19:00 Datetime: 05/09/2016 07:35 Stage of : Recovery (Tamar Bhatia, ROSANA) Datetime: 05/09/2016 07:30 Stage of : Recovery (Tamar Bhatia RN) Pain Scale: 1 (Tamar Bhatia RN) Pain Presence: Intermittent (Tamar Bhatia RN) Pain Type: Cramping (Tamar Bhatia RN) Pain Location: Abdomen (Tamar Bhatia RN) Pain Goal: 0 (Tamar Bhatia RN) Pain Relief Measures: Comfort Measures (Tamar Bhatia RN) Datetime: 05/09/2016 07:26 NBP Sys/Diya/Mean (mmHg): 120 (QS system process) : 66 (QS system process) : 87 (QS system process) Pulse: 52 (QS system process) Datetime: 05/09/2016 07:00 Pain Scale: 0 (Jen Marie RN)
--- NOTE | 2016-05-10 06:01 | L&D Current Admission ---
Current Admit Datetime Report Generated by CPN: 05/10/2016 06:00 ADMISSION INFORMATION Chief Complaint: Contractions (05/09/2016 00:39:Jen Marie RN)
--- NOTE | 2016-05-10 06:01 | L&D General Admission ---
General Admit Datetime Report Generated by CPN: 05/10/2016 06:00 INFORMATION Patient Age: 20 (05/01/2016 14:25:QS system process) EDC: 05/05/2016 00:00 (05/07/2016 09:20:Meryl Vergara RN) : 2 (05/07/2016 09:20:Madhavi Red RN) Para: 1 (05/07/2016 09:57:Meryl Vergara RN) Term: 1 (05/07/2016 09:20:Madhavi Red RN) : 0 (05/07/2016 09:20:Madhavi Red RN) Spontaneous Abortions: 0 (05/07/2016 09:20:Madhavi Red RN) Induced Abortions: 0 (05/07/2016 09:20:Madhavi Red RN) Livin (05/07/2016 09:20:Madhavi Red RN) Cesareans: 0 (05/07/2016 09:20:Madhavi Red RN) VBACs: 0 (05/07/2016 09:20:Madhavi Red RN) Ectopic: 0 (05/07/2016 09:20:Madhavi Red RN) Multiple Births: 0 (05/07/2016 09:20:Madhavi Red RN) Baby, Number in Womb: 1 (05/07/2016 09:57:Meryl Vergara RN) CARE Primary Qa Reviewer: [facility] (Annotations: Data stored by [facility] on behalf of user) (05/07/2016 09:20:Meryl Vergara RN) Adequate Care: Yes (05/07/2016 09:20:Madhavi Red RN) Prepregnancy Weight (lb): 174 (05/07/2016 09:20:Madhavi Red RN) Prepregnancy Weight (kg): 79.1 (05/07/2016 09:20:QS system process) ALLERGIES Medication Allergy: No (05/07/2016 09:20:Madhavi Red RN) Medication Allergies: No Known Drug Allergies (05/07/2016); nickel (05/07/2016) (05/07/2016 10:09:QS system process) Latex Allergy: Latex Allergies (05/07/2016 09:20:Jen Marie RN) COMMUNICATION Primary Language: Turkmen (05/07/2016 09:20:Madhavi Red RN) Medical Tx Preferred Language: Turkmen (05/07/2016 09:20:Madhavi Red RN) Communication Barrier(s): None (05/07/2016 09:20:Madhavi Red RN) DEMOGRAPHICS Address: [address] [place] [id number] (05/01/2016 14:25:QS system process) Zipcode: [address] (05/01/2016 14:25:QS system process) Home (05/01/2016 14:25:QS system process) Work (05/01/2016 14:25:QS system process) N: [phone] (05/01/2016 14:25:QS system process) Next of Kin Name: ANKITA WATSON (05/01/2016 14:25:QS system process) Next of Kin (05/01/2016 14:25:QS system process) Next of Kin Relationship: SPO (05/01/2016 14:25:QS system process) Date of : 1995 (05/01/2016 14:25:QS system process) Marital Status: (05/01/2016 14:25:QS system process) Sex: Female (05/01/2016 14:25:QS system process) Race: (05/01/2016 14:25:QS system process) Ethnicity: Non- or (05/01/2016 14:25:QS system process) Adventist: None (05/01/2016 14:25:QS system process) DRUG AND ALCOHOL USE Alcohol: No (05/07/2016 09:20:Jen Marie RN) Cigarettes: Former Smoker. 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: [employer] (05/07/2016 09:20:Jen Marie RN) Feeding Preference: Breast (05/07/2016 09:20:Jen Marie RN) Benefit of Breast Feed Discussed: Yes (05/07/2016 09:20:Jen Marie RN) Circumcision: Yes (05/07/2016 09:20:Jne Marie RN) Tubal Ligation: No (05/07/2016 09:20:Jen Marie RN) Tubal Authorization Signed: N/A (05/07/2016 09:20:Jen Marie RN) Consent: N/A (05/07/2016 09:20:Jen Marie RN) Consent Signed: N/A (05/07/2016 09:20:Jen Marie RN) Pain Management Plans: Epidural (05/07/2016 09:20:Jen Marie RN) Plans for Labor and Delivery: None (05/07/2016 09:20:Jen Marie RN) Support Person: Tejinder (05/07/2016 09:20:Jen Marie RN) Support Person Relationship: (05/07/2016 09:20:Jen Marie RN) Cultural/Spritual Practice: No (05/07/2016 09:20:Jen Marie RN) Spir/Cult Dietary Needs: No (05/07/2016 09:20:Jen Marie RN) LIVING SITUATION/DISCHARGE PLAN Living Arrangements: House (05/07/2016 09:20:Jen Marie RN) Adequate Access to:: Electric; Heat; Refrigeration; Plumbing/Running water; Phone; Transportation (05/07/2016 09:20:Jen Marie RN) WIC Program: No (05/07/2016 09:20:Jen Marie RN) Discharge Copy Director Person: (05/07/2016 09:20:Jen Marie RN) Person to Help after Discharge: (05/07/2016 09:20:Jen Marie RN) Currently Using Commun Resources: No (05/07/2016 09:20:Jen Marie RN) Outside Agency/Sort Line: No (05/07/2016 09:20:Jen Marie RN) Car Seat for Discharge: Yes (05/07/2016 09:20:Jen Marie RN) Adoption Requested: No (05/07/2016 09:20:Jen Marie RN) Pt Contact w/ Post : N/A (05/07/2016 09:20:Jen Marie RN) LABS Blood Type: O Positive (05/07/2016 09:20:Madhavi Red RN) Antibody Screen: Negative (05/07/2016 09:20:Madhavi Red RN) Rho(G) this : Not Applicable (05/07/2016 09:20:Madhavi Red RN) Hemoglobin: 12.2 (05/09/2016 00:53:QS system process) Hematocrit: 36.0-47.0 % (05/10/2016 06:01:QS system process) MCV: 86 (05/09/2016 00:53:QS system process) Group Beta Strep: Positive (05/07/2016 09:20:Madhavi Red RN) Gonorrhea: Negative (05/07/2016 09:20:Madhavi Red RN) Chlamydia: Negative (05/07/2016 09:20:Madhavi Red RN) RPR/VDRL: Nonreactive (05/07/2016 09:20:Madhavi Red RN) HIV Results: Negative (05/07/2016 09:20:Madhavi Red RN) Hepatitis B: Negative (05/07/2016 09:20:Madhavi Red RN) Rubella: Immune (05/07/2016 09:20:Madhavi Red RN) OB/PREVIOUS HISTORY Previous Procedures: Ultrasound; NST (05/07/2016 09:20:Madhavi Red RN) Current Procedures: Ultrasound; NST (05/07/2016 09:20:Madhavi Red RN) History of Previous : No (05/07/2016 09:20:Jen Marie RN) History of Gestational Diabetes: No (05/07/2016 09:20:Jen Marie RN) History of PIH: No (05/07/2016 09:20:Jen Marie RN) History of Incompetent Cervix: No (05/07/2016 09:20:Jen Marie RN) History of Placenta Previa/Abrup: No (05/07/2016 09:20:Jen Marie RN) History of Macrosomia: No (05/07/2016 09:20:Jen Marie RN) History of IUGR: No (05/07/2016 09:20:Jen Marie RN) History of Hemorrhage: No (05/07/2016 09:20:Jen Marie RN) History of Loss/Stillborn: No (05/07/2016 09:20:Jen Marie RN) History of : No (05/07/2016 09:20:Jen Marie RN) History of D (Rh) Sensitization: No (05/07/2016 09:20:Jen Marie RN) History Recurrent Loss/Stillborn: No (05/07/2016 09:20:Jen Marie RN) History Depression/PP Depression: No (05/07/2016 09:20:Jen Marie RN) History of Uterine Anomaly/VELASQUEZ: No (05/07/2016 09:20:Jen Marie RN) History of Infertility: No (05/07/2016 09:20:Jen Marie RN) History of ART Treatment: No (05/07/2016 09:20:Jen Marie RN) History of VELASQUEZ: No (05/07/2016 09:20:Jen Marie RN) Comments Obstetrical History: G1-07/2013 @ 41wks Male 8lbs 2oz G2-Current (05/07/2016 09:20:Madhavi Red RN) MEDICAL HISTORY Med Hx Diabetes: No (05/07/2016 09:20:Jen Marie RN) Med Hx Hypertension: No (05/07/2016 09:20:Jen Marie RN) Med Hx Heart Disease: No (05/07/2016 09:20:Jen Marie RN) Med Hx Autoimmune Disorder: No (05/07/2016 09:20:Jen Marie RN) Med Hx Kidney Disease/UTI: No (05/07/2016 09:20:Jen Marie RN) Med Hx Neurologic/Epilepsy: No (05/07/2016 09:20:Jen Marie RN) Med Hx Psychiatric Disorders: No (05/07/2016 09:20:Jen Mraie RN) Med Hx Hepatitis/Liver Disease: No (05/07/2016 09:20:Jen Marie RN) Med Hx Varicosities/Phlebitis: No (05/07/2016 09:20:Jen Marie RN) Med Hx Thyroid Dysfunction: No (05/07/2016 09:20:Jen Marie RN) Med Hx Trauma/Violence: No (05/07/2016 09:20:Jen Marie RN) Med Hx Blood Transfusion: No (05/07/2016 09:20:Jen Marie RN) Med Hx Pulmonary (Asthma,TB): No (05/07/2016 09:20:Jen Marie RN) Med Hx Breast: No (05/07/2016 09:20:Jen Marie RN) 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 (05/07/2016 09:20:Jen Marie RN) Med Hx Hospitalization/Surgery: No (05/07/2016 09:20:Jen Marie RN) Med Hx Anesthetic Complications: No (05/07/2016 09:20:Jen Marie RN) Med Hx Abnormal Pap Smear: No (05/07/2016 09:20:Jen Marie RN) Other Medical Diseases: No (05/07/2016 09:20:Jen Marie RN) Med Hx Significant Family Hx: No (05/07/2016 09:20:Jen Marie RN) INFECTIOUS HISTORY Inf Hx Gonorrhea: No (05/07/2016 09:20:Jen Marie RN) Inf Hx Chlamydia: No (05/07/2016 09:20:Jen Marie RN) Inf Hx Syphilis: No (05/07/2016 09:20:Jen Marie RN) Inf Hx HIV/AIDS: No (05/07/2016 09:20:Jen Marie RN) Inf Hx Human Papilloma Virus: No (05/07/2016 09:20:Jen Marie RN) Inf Hx Pt/Partner Genital Herpes: No (05/07/2016 09:20:Jen Marie RN) Inf Hx Tuberculosis/Exposure: No (05/07/2016 09:20:Jen Marie RN) Inf Hx Hepatitis B,C: No (05/07/2016 09:20:Jen Marie RN) Inf Hx Rash or Viral Illness: No (05/07/2016 09:20:Jen Marie RN) GENETIC HISTORY Gen Hx Age >=35 at [facility]: No (05/07/2016 09:20:Jen Marie RN) Gen Hx Thalassemia: No (05/07/2016 09:20:Jen Marie RN) Gen Hx Congenital Heart Defect: No (05/07/2016 09:20:Jen Marie RN) Gen Hx Neural Tube Defect: No (05/07/2016 09:20:Jen Marie RN) Gen Hx Down's Syndrome: No (05/07/2016 09:20:Jen Marie RN) Gen Hx Jacob-Sachs: No (05/07/2016 09:20:Jen Marie RN) Gen Hx Jack: No (05/07/2016 09:20:Jen Marie RN) Gen Hx Familial Dysautonomia: No (05/07/2016 09:20:Jen Marie RN) Gen Hx Sickle Cell Disease/Trait: No (05/07/2016 09:20:Jen Marie RN) Gen Hx Hemophilia/Blood Disorder: No (05/07/2016 09:20:Jen Marie RN) Gen Hx Muscular Dystrophy: No (05/07/2016 09:20:Jen Marie RN) Gen Hx Cystic Fibrosis: No (05/07/2016 09:20:Jen Marie RN) Gen Hx [place] Chorea: No (05/07/2016 09:20:Jen Marie RN) Gen Hx Mental Retardation/Autism: No (05/07/2016 09:20:Jen Marie RN) Gen Hx Tested for Fragile X: No (05/07/2016 09:20:Jen Marie RN) Gen Hx Other Inher/Chromosomal: No (05/07/2016 09:20:Jen Marie RN) Gen Hx Maternal Metabolic DO: No (05/07/2016 09:20:Jen Marie RN) Gen Hx Pt Father or FOB Defect: No (05/07/2016 09:20:Jen Marie RN) Gen Hx Other Genetic History: No (05/07/2016 09:20:Jen Marie RN) Gen Hx Drugs/Meds since LMP: No (05/07/2016 09:20:Jen Marie RN)
--- NOTE | 2016-05-10 06:16 | L&D Care Plan ---
LD CARE PLANS Datetime Report Generated by CPLeona: 05/10/2016 06:15 Datetime: 05/09/2016 00:46 State: Actual (Madhavi Red RN) Related To: Labor and Delivery Process; Disease Process; Treatment and Procedures; Post (Madhavi Red RN) Goal(s): Patients Pain will be Assessed and Managed; Patient will Verbalize Adequate Relief of Pain or the Ability to [place] with Current Pain (Madhavi Red RN) Interventions: Assess Pain Severity on Scale of 0 (None) to 5 (Severe); Assess Type, Location and Intensity of Pain Each Time Client Reports Discomfort and Notify Provider if Unusal Pain Develops; Encourage Proper Breathing and Relaxation Techniques; Offer Alternatives Such as Repositioning, Calm Environment, Massages, Diversional Activities, Ice Pack, Splinting, and Ambulation; Administer Analgesics as Ordered; Assist with Epidural Placement as Appropriate; Evaluate Therapeutic Effectiveness of Medication and Treatments (Madhavi Red RN) Outcome: Patient will Report Absence or Relief of Pain Consistent with Established Pain Goal (Madhavi Red RN) Status: Ongoing (Madhavi Red RN) Outcome: Patient will have a Decrease in Signs and Symptoms of Discomfort (Madhavi Red RN) Status: Ongoing (Madhavi Red RN) Outcome: Pain will be Controlled During Procedures (Madhavi Red RN) Status: Ongoing (Madhavi Red RN) State: Actual (Madhavi Red RN) Related To: Labor and Delivery Process; Perceived or Actual Threat to ; Situational Crisis; Significant Life Event (Madhavi Red RN) Goal(s): Patient will have Decreased Anxiety and be able to Function at Acceptable Levels (Madhavi Red RN) Interventions: Assess Verbal and Nonverbal Behavioral Indicators of Anxiety; Assist Patient to Identify and Verbalize Symptoms of Anxiety; Identify and Demonstrate Techniques to Control Anxiety; Assist Patient with Coping Mechanisms to Manage Anxiety; Provide Theraputic Touch for the Patient; Explain to Patient, Using a Calm Reassuring Approach and Nonmedical Terms, All Activities, Procedures, and Concerns; Instruct Patient and Family about Post Discharge Care, Limitations, Symptoms to Report and Resources Available (Madhavi Red RN) Outcome: Patient will Identify, Verbalize and Demonstrate Techniques to Control Anxiety (Madhavi Red RN) Status: Ongoing (Madhavi Red RN) Outcome: Patient's Posture, Facial Expressions, Gestures and Activity Level will Reflect Decreased Anxiety (Madhavi Red RN) Status: Ongoing (Madhavi Red RN) Outcome: Patient will Verbalize a Sense of Control and/or Acceptance of the Situation (Madhavi Red RN) Status: Ongoing (Madhavi Red RN) Outcome: Patient will Identify and Utilize Support Person (Madhavi Red RN) Status: Ongoing (Madhavi Red RN) State: Risk For (Madhavi Red RN) Related To: Labor and Delivery Process; Impending Alterations in Family Dynamics (Madhavi Red RN) Goal(s): Patient will Accurately Verbalize Understanding of Plan of Care and Treatment; Patient and Family will Accurately Verbalize Understanding of the Disease Process (Madhavi Red RN) Interventions: Assess Motivation and Willingness of Patient/Family to Learn; Assess Preferred Learning Mode: One to One Instruction, Reading, Videos, Group Discussion or Demonstration; Assess Barriers to Learning: Pain, Emotional State, Language Barrier, Cognitive Impairment, Visual or Hearing Deficits; Assess Patient and Family Knowledge of Disease Process, Medications and Treatment; Discuss Therapy and/or Treatment Options, Describe Rationale Behind Management, Therapy and Treatment Recommendations; Instruct Patient and Family on Signs and Symptoms to Report; Instruct Patient and Family on Medication Effects and Side Effects; Provide Appropriate and Timely Education Using Multiple Techniques; Provide Patient and Family with Support Group Information and Resources; Give Clear and Thorough Explanations and Demonstrations (Madhavi Red RN) Outcome: Patient and Family will Verbalize Understanding of Condition, Treatment and Signs and Symptoms to Report (Madhavi Red RN) Status: Ongoing (Madhavi Red RN) Outcome: Patient will Identify Perceived Learning Needs and Express Motivation to Learn (Madhavi Red RN) Status: Ongoing (Madhavi Red RN) Outcome: Patient will Verbalize Understanding of Desired Content, and/or Performs Desired Skill Prior to Discharge (Madhavi Red RN) Status: Ongoing (Madhavi Red RN) State: Risk For (Madhavi Red RN) Related To: Invasive Procedures; Altered Tissue Integrity (Madhavi Red RN) Goal(s): The Patient will be Free of Infection, Vital Signs Stable and Lab Work within Normal Parameters (Madhavi Red RN) Interventions: Instruct and Reinforce Proper Handwashing, Hygiene, and Care Techniques to Patient and Family; Monitor Vital Signs; Monitor Patient for the Following Signs of Infection: Fever, Abdominal Tenderness, Unusual Discharge; Monitor Aminiotic Fluid, Urine and Lochia for Color and Odor; Observe Wounds, Incisions and Invasive Line Sites for Redness, Drainage and Edema; Assess IV Sites per Hospital Policy; Monitor Lab and Test Results and Notify Provider of Abnormal Findings; Assess Nutritional Status and Promote Good Nutrition (Madhavi Red RN) Outcome: Patient will Remain Free of Infection (Madhavi Red RN) Status: Ongoing (Madhavi Red RN) Outcome: Infection will be Recognized Early to Allow for Prompt Treatment (Madhavi Red RN) Status: Ongoing (Madhavi Red RN) Outcome: Patient will have Vital Signs Within Expected Range (Madhavi Red RN) Status: Ongoing (Madhavi Red RN) State: Risk For (Madhavi Red RN) Related To: Prolonged Labor or Induction (Madhavi Red RN) Goal(s): Patient will Achieve and Maintain a Balanced Fluid Volume Status; Hemodynamically Stable (Madhavi Red RN) Interventions: Monitor Vital Signs; Auscultate Breath Sounds; Monitor Patient for Skin Turgor, Mucous Membranes, Dry Skin, Weakness, Headaches and Confusion; Provide Oral Fluids as Ordered; Initiate and Maintain Intravenous Fluids as Ordered; Monitor Intake and Output as Indicated Per Patient Status; Accurately Measure Blood Loss; Monitor Lab and Test Results as Obtained and Notify Provider of Abnormal Findings; Monitor Patient's Weight (Madhavi Red RN) Outcome: Patient will have Clear Lung Sounds (Madhavi Red RN) Status: Ongoing (Madhavi Red RN) Outcome: Patient will have Vital Signs within Expected Range (Madhavi Red RN) Status: Ongoing (Madhavi Red RN) Outcome: Urine Output will be within Expected Range (Madhavi Red RN) Status: Ongoing (Madhavi Red RN) Outcome: Patient will have Minimal Generalized or Upper Extremity Edema (Madhavi Red RN) Status: Ongoing (Madhavi Red RN) State: Risk For (Madhavi Red RN) Related To: Labor and Delivery Process (Madhavi Red RN) Goal(s): Patient will Remain Free from Injury (Madhavi Red RN) Interventions: Monitoring as per Hospital Protocol; Assess Neurological Status; Perform Risk Assessment of Patients with Induction and ; Perform Fall Risk Assessment and Prevention per Hospital Protocol; Perform DVT Risk Assessment and Prophylaxis per Hospital Protocol; Ensure that Oxygen, Suction, and Resuscitation Medications and Equipment are Readily Available; Confirm Patient ID Prior to Procedure(s) and Medication Administration per Hospital Policy (Madhavi Red RN) Outcome: Successful Fall Risk Prevention (Madhavi Red RN) Status: Ongoing (Madhavi Red RN) Outcome: Patient will Deliver Infant without Adverse [place] (Madhavi Red RN) Status: Ongoing (Madhavi Red RN) Outcome: Patient's Neurological Status will Remain Stable (Madhavi Red RN) Status: Ongoing (Madhavi Red RN) State: Risk For (Madhavi Red RN) Related To: Vaginal Delivery; Altered Tissue Integrity; Invasive Procedures (Madhavi Red RN) Goal(s): Patient will Maintain Optimal Skin Integrity, Free of Breakdown, Injury or Infection (Madhavi Red RN) Interventions: Complete Screening for Pressure Ulcer Risk and Initiate Protocol per Hospital Policy; Monitor Site of Skin Impairment for Color Changes, Redness, Swelling, Warmth, Pain or Other Signs of Infection; Encourage and Assist with Position Changes; Monitor Patient's Mobility Status; Provide Adequate Nutrition and Fluids; Teach Patient Appropriate Hygienic Care; Teach Patient/Family Skin Care Management (Madhavi Red RN) Outcome: Patient will not have Evidence of Injury Such as Skin Breakdown, Scrapes, Cuts, or Bruising (Madhavi Red RN) Status: Ongoing (Madhavi Red RN) Outcome: Patient will Report Any Altered Sensation or Pain at Site of Skin Impairment (Madhavi Red RN) Status: Ongoing (Madhavi Red RN) Outcome: Patients Incisions and Wounds will be without Signs or Symptoms of Infection (Madhavi Red RN) Status: Ongoing (Madhavi Red RN) Outcome: Patient will Demonstrate Understanding of Plan to Heal Skin and Prevent Reinjury and Verbalize Risk Factors (Madhavi Red RN) Status: Ongoing (Madhavi Red RN) State: Actual (Madhavi Red RN) Nursing Diagnosis or r/t: (Madhavi Red RN) Goal(s): Patient will demonstrate ability to breastfeed and will ask for any assistance needed. (Madhavi Red RN) Interventions: Support patient in efforts. (Madhavi Red RN)
[2016-05-10 08:05] LABS: HEMATOCRIT 34.6 % (36.0-47.0); HEMOGLOBIN 11.7 g/dL (12.0-15.5); HGB HCT DIFFERENCE 0.5; MEAN CORPUSCULAR HEMOGLOBIN 29.3 pg (27.0-33.4); MEAN CORPUSCULAR HGB CONC 33.9 g/dL (32.0-36.0); MEAN CORPUSCULAR VOLUME 87 fl (80-97); RED CELL DISTRIBUTION WIDTH 15.5 % (11.5-14.0); WHITE BLOOD COUNT 10.1 10^3/uL (4.0-10.5)
[2016-05-10] MEDS: IBUPROFEN 800 MG TABLET PO SCH ×2 (08:49→14:03)
--- NOTE | 2016-05-10 09:03 | PDOC PROGRESS REPORT ---
Subjective-OB Subjective: Post Delivery Day: 20 year old. Denies any needs at this time Physical Exam (OB) Vital Signs: Temp Pulse Resp BP Pulse Ox 97.7 F 72 16 121/78 99 05/10/16 07:24 05/10/16 07:24 05/10/16 07:24 05/10/16 07:24 05/10/16 07:24 Intake & Output 05/09/16 05/10/16 05/11/16 06:59 06:59 06:59 Intake Total 600 Balance 600 - PIH/Pre-Eclampsia Clonus: Negative Headache: Absent Epigastric Pain: No Visual Changes: No - Lochia Lochia Amount: Scant < 10 ml Lochia Color: Rubra/Red - Abdomen Description: Soft, Round Hernia Present: No Bowel Sounds: Normoactive Flatus Presence: Present Stool: No Fundal Description: Firm, Midline Fundal Height: u/u - u/2 Objective-Diagnostic Laboratory: 05/10/16 07:16 05/10/16 07:16 WBC 10.1 RBC 4.00 Hgb 11.7 L Hct 34.6 L MCV 87 MCH 29.3 MCHC 33.9 RDW 15.5 H Plt Count 195
[2016-05-10] MEDS: FERROUS SULFATE 325 MG TABLET PO SCH ×2 (09:30→17:16)
[2016-05-10] MEDS: SENNOSIDES/DOCUSATE 8.6-50 MG 1 EACH TABLET PO SCH (09:31)
[2016-05-10] MEDS: PRENATAL VITAMIN W-O CA NO5/FE FUMARATE/FA CAPSULE PO SCH (09:31)
[2016-05-10] MEDS: DOCUSATE SODIUM 100 MG CAPSULE PO SCH ×2 (09:31→17:16)
[2016-05-11] MEDS: IBUPROFEN 800 MG TABLET PO SCH ×2 (00:19→09:19)
--- NOTE | 2016-05-11 09:07 | PDOC PROGRESS REPORT ---
Subjective-OB Subjective: Post Delivery Day: 20 year old. Denies any needs at this time. Ready to go home. Physical Exam (OB) Vital Signs: Temp Pulse Resp BP Pulse Ox 98.1 F 66 18 120/68 97 05/11/16 06:09 05/11/16 06:09 05/11/16 06:09 05/11/16 06:09 05/11/16 06:09 Intake & Output 05/10/16 05/11/16 05/12/16 06:59 06:59 06:59 Intake Total 600 900 Balance 600 900 - PIH/Pre-Eclampsia Clonus: Negative Headache: Absent Epigastric Pain: No Visual Changes: No - Lochia Lochia Amount: Scant < 10 ml Lochia Color: Serosa/Brown - Abdomen Description: Soft, Round Hernia Present: No Bowel Sounds: Normoactive Flatus Presence: Present Stool: No Fundal Description: Firm, Midline Fundal Height: u/3 - u/4 Objective-Diagnostic Laboratory: 05/10/16 07:16
--- NOTE | 2016-05-11 09:12 | PDOC DISCHARGE SUMMARY ---
Final Diagnosis Discharge Date: 05/11/16 - Final Diagnosis (1) Delivery normal Is this a current diagnosis for this admission?: Yes (2) Positive GBS test Is this a current diagnosis for this admission?: Yes Discharge Data - Discharge Medication Home Medications: Vit/Iron Fumarate/FA [ Tablet] 1 tab PO DAILY 05/07/16 Docusate Sodium [Colace 100 mg Capsule] 100 mg PO BID #30 capsule 05/11/16 Gestational Age: 40.4 wks Reason(s) for Admission: Onset of Labor Procedures: Ultrasound Intrapartum Procedure(s): Spontaneous Vaginal Delivery - Data Baby 1 Male at 1 minute: 9 at 5 minutes: 9 Weight: 4.167 kg Home with Mother: Yes Complications: No - Diagnosis Test Laboratory: Temp Pulse Resp BP Pulse Ox 98.1 F 66 18 120/68 97 05/11/16 06:09 05/11/16 06:09 05/11/16 06:09 05/11/16 06:09 05/11/16 06:09 05/09/16 05/09/16 05/10/16 00:30 00:53 07:16 RBC 4.14 4.00 Hgb 12.2 11.7 L Hct 35.7 L 34.6 L Urine Opiates Screen NEGATIVE - Discharge information/Instructions Discharge Activity: Activity As Tolerated, Balance Activity w/Rest, Pelvic Rest , Slowly Increase Activity, No tub bath Discharge Diet: Regular Disposition: HOME, SELF-CARE Follow up with: [facility] in: 4, Weeks
[2016-05-11] MEDS: DOCUSATE SODIUM 100 MG CAPSULE PO SCH (09:18)
[2016-05-11] MEDS: SENNOSIDES/DOCUSATE 8.6-50 MG 1 EACH TABLET PO SCH (09:18)
[2016-05-11] MEDS: PRENATAL VITAMIN W-O CA NO5/FE FUMARATE/FA CAPSULE PO SCH (09:18)
[2016-05-11] MEDS: FERROUS SULFATE 325 MG TABLET PO SCH (09:19)
[2016-05-11 11:18] VITALS: BP 117/76
== END 2016-05-11 13:23 | disposition home or self-care (01) | DRG 775 ==
LOC: LC 00:20 → LR 00:42 → 2S 08:00
PROVIDERS: ADMIT Specialist; ATTEND Specialist
PROC: 10E0XZZ Delivery of Products of Conception, External Approach (ICD-10-PCS; principal; 2016-05-09)
PROC: 4A1HXCZ Monitoring of Products of Conception, Cardiac Rate, External Approach (ICD-10-PCS; 2016-05-09)
PROC: 3E0234Z Introduction of Serum, Toxoid and Vaccine into Muscle, Percutaneous Approach (ICD-10-PCS; 2016-05-11)
DX: O99.824 Streptococcus B carrier state complicating childbirth (principal); Z3A.40 40 weeks gestation of pregnancy; Z23 Encounter for immunization; Z37.0 Single live birth; Z87.891 Personal history of nicotine dependence
CPT/HCPCS: 36415; 80307; 81005; 85025; 85027; 86592; 86850; 86900; 86901; 88307; 90715; J2540; J2590; J3490